=== PATIENT | male | born 1965 | race Caucasian/White ===

== ENCOUNTER 2016-06-23 09:50 | Emergency (ER) | payer MEDICAID ==
[~2016-06-23] VITALS: Ht 172.7 cm; Wt 61.7 kg
[~2016-06-23 09:50] MED LIST: APAP/HYDROCODON1 T13 PO; ASPIR 8181 MG PO; BACTRIM DS1 TAB PO; CLEOCIN HCL300 MG PO; COLACE100 MG PO; LAC PO; LEVAQUIN750 MG PO; NOR10T PO; PRI20 PO
[2016-06-23 10:09] VITALS: BP 131/95
== END 2016-06-23 12:18 | disposition home or self-care (01) ==
LOC: ED 09:50
DX: K08.89 Other specified disorders of teeth and supporting structures (principal)

== ENCOUNTER 2016-09-03 13:32 | Emergency (ER) | payer OTHER ==
[~2016-09-03] VITALS: Ht 172.7 cm; Wt 59.1 kg
[2016-09-03 13:39] VITALS: BP 113/86
== END 2016-09-03 14:17 | disposition home or self-care (01) ==
LOC: ED 13:32
DX: L97.121 Non-pressure chronic ulcer of left thigh limited to breakdown of skin (principal); F17.200 Nicotine dependence, unspecified, uncomplicated; F12.929 Cannabis use, unspecified with intoxication, unspecified; Z88.0 Allergy status to penicillin; V19.9XXA Pedal cyclist (driver) (passenger) injured in unspecified traffic accident, initial encounter; Y93.89 Activity, other specified; Y99.8 Other external cause status; Y92.89 Other specified places as the place of occurrence of the external cause

== ENCOUNTER 2017-04-12 12:30 | Emergency (ER) | payer SELFPAY ==
[2017-04-12 12:32] VITALS: BP 113/74
[2017-04-12 12:49] LABS: PLATELET COUNT 362 x10^3mcL (130-400); RED CELL DISTRIBUTION WIDTH 13.5 % (11.5-14.5)
[2017-04-12 12:51] LABS: BASOPHIL % 2.3 % (0-2)
[2017-04-12 12:56] LABS: CALCIUM 8.5 mg/dL (8.5-10.1); CARBON DIOXIDE 29.4 mmol/L (21-32); CHLORIDE SERUM 105 mmol/L (98-107); GFR1 > 60 mL/min; GLUCOSE SERUM 106 mg/dL (74-106); POTASSIUM SERUM 4.2 mmol/L (3.5-5.1); SODIUM SERUM 141 mmol/L (136-145)
[2017-04-12 13:01] LABS: ALBUMIN 3.4 g/dL (3.4-5.0); ALKALINE PHOSPHATASE 68 U/L (46-116); ALT/SGPT 25 U/L (16-63); AST/SGOT 29 U/L (15-37); BILIRUBIN TOTAL 0.2 mg/dL (0.20-1.00); TOTAL PROTEIN, SERUM 6.7 g/dL (6.4-8.2)
== END 2017-04-12 16:17 | disposition left against medical advice (07) ==
LOC: ED 12:30
DX: Z53.21 Procedure and treatment not carried out due to patient leaving prior to being seen by health care provider (principal)
CPT/HCPCS: 36415; 83880

== ENCOUNTER 2017-10-07 15:05 | Emergency (ER) | payer SELFPAY | END 2017-10-07 15:22 | disposition left against medical advice (07) | LOC: ED 15:05 | DX: Z53.21 Procedure and treatment not carried out due to patient leaving prior to being seen by health care provider (principal) ==

== ENCOUNTER 2017-10-09 19:28 | Emergency (ER) | payer SELFPAY ==
[2017-10-09 21:08] VITALS: BP 116/70
== END 2017-10-09 21:08 | disposition home or self-care (01) ==
LOC: ED 19:28
DX: L03.115 Cellulitis of right lower limb (principal); Z86.73 Personal history of transient ischemic attack (TIA), and cerebral infarction without residual deficits; Z88.0 Allergy status to penicillin
CPT/HCPCS: 90715; J1885

== ENCOUNTER 2018-07-12 23:13 | Emergency (ER) | payer MEDICAID ==
[~2018-07-12] VITALS: Ht 170.2 cm; Wt 60.3 kg
[2018-07-12 23:24] VITALS: Ht 170.2 cm; Wt 60.3 kg
[2018-07-13 00:18] VITALS: BP 125/80
== END 2018-07-13 01:01 | disposition left against medical advice (07) ==
LOC: ED 23:13
DX: R07.89 Other chest pain (principal); R06.02 Shortness of breath; M25.561 Pain in right knee; F17.210 Nicotine dependence, cigarettes, uncomplicated; G51.0 Bell's palsy; Z88.0 Allergy status to penicillin; Z86.73 Personal history of transient ischemic attack (TIA), and cerebral infarction without residual deficits

== ENCOUNTER 2018-08-11 09:58 | Emergency (ER) | payer MEDICAID ==
[~2018-08-11] VITALS: Ht 172.7 cm; Wt 59.0 kg
[2018-08-11 10:02] VITALS: BP 111/64; Ht 172.7 cm; Wt 59.0 kg
== END 2018-08-11 10:49 | disposition home or self-care (01) ==
LOC: ED 09:58
DX: S61.451A Open bite of right hand, initial encounter (principal); Z88.0 Allergy status to penicillin; Z90.49 Acquired absence of other specified parts of digestive tract; W55.01XA Bitten by cat, initial encounter; Y93.89 Activity, other specified; Y92.89 Other specified places as the place of occurrence of the external cause; Y99.8 Other external cause status

== ENCOUNTER 2019-08-26 07:00 | Emergency (ER) | payer MEDICAID ==
[~2019-08-26] VITALS: Ht 172.7 cm; Wt 59.0 kg
[2019-08-26 07:15] VITALS: BP 128/89; Ht 172.7 cm; Wt 59.0 kg
[2019-08-28 04:06] LABS: RAPID PLASMA REAGIN Non Reactive (Non Reactive)
== END 2019-08-26 08:28 | disposition home or self-care (01) ==
LOC: ED 07:00
PROVIDERS: Emergency Medicine
DX: G51.0 Bell's palsy (principal); N34.2 Other urethritis; F12.10 Cannabis abuse, uncomplicated
CPT/HCPCS: 87491; 87591

== ENCOUNTER 2019-09-29 14:03 | Emergency (ER) | payer MEDICAID ==
[~2019-09-29] VITALS: Ht 172.7 cm; Wt 58.1 kg
[2019-09-29 14:10] VITALS: BP 160/100; Ht 172.7 cm; Wt 58.1 kg
== END 2019-09-29 15:02 | disposition left against medical advice (07) ==
LOC: ED 14:03
DX: Z53.21 Procedure and treatment not carried out due to patient leaving prior to being seen by health care provider (principal)

== ENCOUNTER 2019-12-23 12:36 | Emergency (ER) | payer MEDICAID ==
[2019-12-23 13:45] VITALS: BP 140/95
[2019-12-23 15:08] LABS: BASOPHIL % 0.4 % (0-2); PLATELET COUNT 369 x10^3mcL (130-400); RED CELL DISTRIBUTION WIDTH 14.2 % (11.5-14.5)
[2019-12-23 15:26] LABS: CALCIUM 8.2 mg/dL (8.5-10.1); CARBON DIOXIDE 24.6 mmol/L (21-32); CHLORIDE SERUM 107 mmol/L (98-107); CREATININE SERUM 1.2 mg/dL (0.7-1.3); GFR1 > 60 mL/min; GLUCOSE SERUM 92 mg/dL (74-106); POTASSIUM SERUM 4.2 mmol/L (3.5-5.1); SODIUM SERUM 139 mmol/L (136-145)
[2019-12-23 15:31] LABS: ALKALINE PHOSPHATASE 92 U/L (46-116); ALT/SGPT 16 U/L (16-63); AST/SGOT 26 U/L (15-37); LIPASE 116 IU/L (73-393); TOTAL PROTEIN, SERUM 6.4 g/dL (6.4-8.2)
[2019-12-23 16:30] LABS: BILIRUBIN TOTAL 0.25 mg/dL (0.20-1.00)
== END 2019-12-23 16:02 | disposition left against medical advice (07) ==
LOC: ED 12:36
PROVIDERS: Emergency Medicine
DX: R10.817 Generalized abdominal tenderness (principal); F12.10 Cannabis abuse, uncomplicated; R05 Cough; R11.0 Nausea; Z86.73 Personal history of transient ischemic attack (TIA), and cerebral infarction without residual deficits; Z90.89 Acquired absence of other organs; Z88.0 Allergy status to penicillin
CPT/HCPCS: J2270; J2405; J7030

== ENCOUNTER 2020-02-05 15:55 | Emergency (ER) | payer MEDICAID, SELFPAY ==
[~2020-02-05] VITALS: Ht 172.7 cm; Wt 59.0 kg
[2020-02-05 15:57] VITALS: Ht 172.7 cm; Wt 59.0 kg
[2020-02-05 17:40] VITALS: BP 132/87
== END 2020-02-05 17:40 | disposition left against medical advice (07) ==
LOC: ED 15:55
DX: R10.9 Unspecified abdominal pain (principal); R51.9 Headache, unspecified; M79.10 Myalgia, unspecified site; F12.10 Cannabis abuse, uncomplicated; Z90.89 Acquired absence of other organs; Z86.2 Personal history of diseases of the blood and blood-forming organs and certain disorders involving the immune mechanism
CPT/HCPCS: J7030

== ENCOUNTER 2020-03-23 13:34 | Emergency (ER) | payer MEDICAID | END 2020-03-23 16:48 | disposition home or self-care (01) | LOC: ED 13:34 | DX: Z53.21 Procedure and treatment not carried out due to patient leaving prior to being seen by health care provider (principal) ==